=== PATIENT | female | born 1985 | race Caucasian/White ===

== ENCOUNTER → 2016-10-30 | Outpatient (CLI) | payer BC | LOC: RAD 16:35 | PROVIDERS: ATTEND Physician Assistant | DX: D17.79 Benign lipomatous neoplasm of other sites (principal) | CPT/HCPCS: 76881 ==

== ENCOUNTER → 2017-03-02 | Outpatient (CLI) | payer BC ==
--- NOTE | 2017-03-02 11:10 | RADIOLOGY REPORT (SQ) ---
EXAM DESCRIPTION: MRI LT LOWER JOINT WITHOUT COMPLETED DATE/TIME: 03/02/2017 9:27 am REASON FOR STUDY: LEFT KNEE PAIN (M25.562) M25.562 PAIN IN LEFT KNEE COMPARISON: None. TECHNIQUE: Leftknee images acquired and stored on PACS. Multiplanar images include fat sensitive se quences as T1, water sensitive sequences as FST2 or STIR, cartilage sensitive sequences as FSPD, and gradient echo sequences. LIMITATIONS: Motion artifact. FINDINGS: JOINT AND BURSAE: No effusion. BONE CORTEX AND MARROW: No alteration of signal to suggest marrow replacement. No worrisome bone lesi ons. No occult fracture. ACL: Intact. No degeneration or ganglion cyst. PCL: Intact. MCL: Intact. No periligamentous edema or fluid. LCL: Intact. No periligamentous edema or fluid. MEDIAL MENISCUS: No tears. No abnormal signal. LATERAL MENISCUS: No tears. No abnormal signal. MEDIAL COMPARTMENT: Cartilage preserved. No bone bruises or reactive marrow edema. No osteophytes. LATERAL COMPARTMENT: Cartilage preserved. No bone bruises or reactive marrow edema. No osteophytes. PATELLA: Mild subchondral signal alteration in the trochlea. Intact retinaculum. EXTENSOR MECHANISM: Intact. Quadriceps and patella tendons normal. SOFT TISSUES: Adjacent muscles and subcutaneous tissues normal. Normal flow void in popliteal artery and vein. OTHER: No other significant finding. IMPRESSION: Motion artifact. No evidence of meniscal or ligament tear. TECHNICAL DOCUMENTATION: JOB ID: [id number] [employer]- All Rights Reserved
== END ==
LOC: RAD 08:30
PROVIDERS: ATTEND Physician Assistant
DX: M25.562 Pain in left knee (principal)

== ENCOUNTER → 2017-03-12 | Outpatient (CLI) | payer BC ==
--- NOTE | 2017-03-12 10:44 | RADIOLOGY REPORT (SQ) ---
EXAM DESCRIPTION: MRI LT LOWER JOINT WITHOUT COMPLETED DATE/TIME: 03/12/2017 9:56 am REASON FOR STUDY: PAIN IN LEFT HIP M25.562 PAIN IN LEFT KNEE COMPARISON: None. TECHNIQUE: Lefthip images acquired and stored on PACS. Multiplanar images to include fat sensitive s equences as T1, fluid sensitive sequences as T2/STIR and gradient echo sequences. Large FOV fat and f luid sensitive sequences include pelvis and opposite hip. LIMITATIONS: None. FINDINGS: BONE CORTEX AND MARROW: No generalized marrow replacement. No occult fracture. No worriso me bone lesions. LEFT HIP: FEMORAL HEAD: No occult fracture. No osteophytes or subchondral cysts. Normal sphericity of femoral h ead/neck junction. No acetabular dysplasia. No evidence femoroacetabular impingement. No significant effusion. ACETABULUM: No acetabular dysplasia. No subchondral cysts. LABRUM: No loss of cartilage or delamination. Labrum is intact. No paralabral cysts. TROCHANTER: No trochanteric bursal effusion. No edema/fluid at the insertions of the gluteus medius and gluteus minimus. RIGHT HIP: Limited evaluation. No worrisome bone lesions. No significant effusion. PELVIS, LOWER LUMBAR SPINE, SACROILIAC JOINTS: PELVIS : No insufficiency/stress fractures. No significant degenerative changes. Sacroiliac joints demonstrate very mild edematous marrow change along the lower 3rd of the right and left SI joints, be st shown on coronal STIR images 15 through 18 L SPINE: Degenerative disc changes at L5-S1 MUSCLES AND SOFT TISSUES: Adductors and piriformis normal. Abductors and greater trochanteric bursa n ormal without edema or fluid. Iliopsoas bursa without fluid. Hamstring attachments without edema or t ear. PELVIC SOFT TISSUES: No masses or adenopathy. SCIATIC NERVE: Identified, without masses or abnormal signal. OTHER: No other significant finding. IMPRESSION: Very mild SI joint arthropathy. Otherwise unremarkable study. TECHNICAL DOCUMENTATION: JOB ID: [id number]- All Rights Reserved
== END ==
LOC: RAD 08:49
PROVIDERS: ATTEND Physician Assistant
DX: M25.562 Pain in left knee (principal)

== ENCOUNTER 2018-08-21 07:38 | Emergency (ER) | payer BC ==
--- NOTE | 2018-08-21 08:53 | ER Document Report ---
ED General - General Chief Complaint: Cold Symptoms Stated Complaint: SINUS PRESSURE Time Seen by Provider: 08/21/18 08:07 Mode of Arrival: Ambulatory Information source: Patient TRAVEL OUTSIDE OF THE [place] IN LAST 30 DAYS: No - HPI Patient complains to provider of: Sinus pressure Onset: Other - 33-year-old otherwise healthy female who presents for evaluation of sinus pressure cough and cold for the last 3 days. Has been taking [id number] medications without any improvement in her symptoms she said "I thought it would get better by now and I just cannot take this anymore". Has had multiple episodes like this in the past usually once a year around this time. He trauma, denies any chest pain, shortness of breath, abdominal pain diarrhea constipation dysuria does complain of a fullness in the face. - Related Data Allergies/Adverse Reactions: amoxicillin trihydrate [From Augmentin] Allergy (Verified 08/21/18 07:39) bacitracin [From Neosporin] Allergy (Verified 08/21/18 07:39) bacitracin zinc [From Neosporin] Allergy (Verified 08/21/18 07:39) benzocaine [From Dermagesic] Allergy (Verified 08/21/18 07:39) gramicidin D [From Neosporin] Allergy (Verified 08/21/18 07:39) neomycin sulfate [From Neosporin] Allergy (Verified 08/21/18 07:39) polymyxin B [From Neosporin] Allergy (Verified 08/21/18 07:39) polymyxin B sulfate [From Neosporin] Allergy (Verified 08/21/18 07:39) Potassium Clavulanate * [From Augmentin] Allergy (Verified 08/21/18 07:39) pyrilamine maleate [From Dermagesic] Allergy (Verified 08/21/18 07:39) zinc oxide [From Dermagesic] Allergy (Verified 08/21/18 07:39) Past Medical History - General Information source: Patient - Social History Smoking Status: Former Smoker Family History: Reviewed & Not Pertinent Patient has suicidal ideation: No Patient has homicidal ideation: No - Past Medical History Cardiac Medical History: Reports: Hx Hypertension Renal/ Medical History: Denies: Hx Peritoneal Dialysis Past Surgical History: Reports: Hx Orthopedic Surgery - Left wrist, left hip - Immunizations Hx Diphtheria, Pertussis, Tetanus Vaccination: Yes Review of Systems - Review of Systems -: Yes All other systems reviewed and negative Physical Exam - Vital signs Vitals: Temp Pulse Resp BP Pulse Ox 98 F 95 18 137/116 H 95 08/21/18 07:45 08/21/18 07:45 08/21/18 07:45 08/21/18 07:45 08/21/18 07:45 - General General appearance: Appears well, Alert - HEENT Head: Normocephalic Eyes: Normal Conjunctiva: Normal Sinus: Frontal, Maxillary Nasal: Purulent discharge - Respiratory Respiratory status: No respiratory distress Chest status: Nontender Breath sounds: Normal Chest palpation: Normal - Cardiovascular Rhythm: Regular Heart sounds: Normal auscultation Murmur: No - Abdominal Inspection: Normal Distension: No distension Bowel sounds: Normal Tenderness: Nontender Organomegaly: No organomegaly - Back Back: Normal, Nontender - Extremities General upper extremity: Normal inspection, Nontender, Normal color, Normal ROM, Normal temperature General lower extremity: Normal inspection, Nontender, Normal color, Normal ROM, Normal temperature, Normal weight bearing. No: Shantelle's sign - Neurological Neuro grossly intact: Yes Cognition: Normal Orientation: AAOx4 Perla Coma Scale Eye Opening: Spontaneous Perla Coma Scale Verbal: Oriented Perla Coma Scale Motor: Obeys Commands [place] Coma Scale Total: 15 Speech: Normal Motor strength normal: LUE, RUE, LLE, RLE Sensory: Normal - Psychological Associated symptoms: Normal affect, Normal mood Course - Re-evaluation Re-evalutation: 33-year-old female with sinus pressure does have a cough says that she has had some congestion which feels like this in the chest. We will obtain a chest x-ray. Chest x-ray is negative flu test negative. Believe that this patient likely has an upper respiratory tract infection though she is complaining about sinus pressure and sinus congestion, because she is complaining about her sinuses we will plan for this patient to be given an antibiotic prescription to be filled only if she has persistent symptoms despite conservative management. I instructed her specifically that she should not fill this prescription unless she has had symptoms for greater than 12 days per the recommendation of the [facility]. Patient was discharged with return precautions and expectant management. - Vital Signs Vital signs: Temp Pulse Resp BP Pulse Ox 98.3 F 85 16 118/69 99 08/21/18 09:50 08/21/18 09:50 08/21/18 09:50 08/21/18 09:50 08/21/18 09:50 Discharge - Discharge Clinical Impression: Sinus pressure, Cough, Congestion of respiratory tract Condition: Good Disposition: HOME, SELF-CARE Instructions: Sinusitis ([facility]), Upper Respiratory Illness ([facility]) Additional Instructions: You were seen in the emergency department for your sinus pressure. You had evaluation including a physical exam, a chest x-ray. Your chest x-ray does not show pneumonia, you likely have a viral sinusitis. You should use decongestants. Return to the emergency department in case you have fevers chills inability to breathe or other worsening symptoms otherwise use the medications prescribed you as directed. Do not fill the antibiotic prescribed to you unless you have symptoms greater than 12 days. Prescriptions: Benzonatate [Tessalon Perles 100 mg Capsule] 100 mg PO Q8HP PRN #40 capsule PRN Reason: Amoxicillin Trihydrate [Amoxil 500 mg Capsule] 500 mg PO TID #30 cap Cephalexin Monohydrate [Keflex 500 mg Capsule] 500 mg PO QID #20 capsule Oxymetazoline HCl [Afrin 0.05% Nasal Green 15 ml Bottle] 30 spray NAREB BID PRN #1 bottle PRN Reason: Referrals: BESSIE HUMPHREY PA-C [PHYSICIAN RUBBER COVERING MACHINE OPERATOR] - Follow up as needed
--- NOTE | 2018-08-21 09:20 | RADIOLOGY REPORT (SQ) ---
EXAM DESCRIPTION: CHEST 2 VIEWS COMPLETED DATE/TIME: 08/21/2018 9:10 am REASON FOR STUDY: cough COMPARISON: None. EXAM PARAMETERS: NUMBER OF VIEWS: two views TECHNIQUE: Digital Frontal and Lateral radiographic views of the chest acquired. RADIATION DOSE: NA LIMITATIONS: none FINDINGS: LUNGS AND PLEURA: No opacities, masses or pneumothorax. No pleural effusion. MEDIASTINUM AND HILAR STRUCTURES: No masses or contour abnormalities. HEART AND VASCULAR STRUCTURES: Heart normal size. No evidence for failure. BONES: No acute findings. HARDWARE: None in the chest. OTHER: No other significant finding. IMPRESSION: NO ACUTE RADIOGRAPHIC FINDING IN THE CHEST. TECHNICAL DOCUMENTATION: JOB ID: [id number] [employer]- All Rights Reserved Reading location - IP/workstation name: [email or web address]
[2018-08-21 09:58] VITALS: BP 118/69
== END 2018-08-21 09:50 | disposition home or self-care (01) ==
LOC: ER 07:38
DX: R09.81 Nasal congestion (principal); J34.89 Other specified disorders of nose and nasal sinuses; R09.89 Other specified symptoms and signs involving the circulatory and respiratory systems; R05 Cough; I10 Essential (primary) hypertension; Z88.1 Allergy status to other antibiotic agents; Z88.3 Allergy status to other anti-infective agents; Z88.4 Allergy status to anesthetic agent; Z88.0 Allergy status to penicillin; Z87.891 Personal history of nicotine dependence
CPT/HCPCS: 71046; 99283

== ENCOUNTER 2020-06-22 21:32 | Emergency (ER) | payer OTHER, BC ==
--- NOTE | 2020-06-22 22:46 | ER Document Report ---
Entered by NERI GEORGE SCRIBE 06/22/202200 Acting as scribe for:FABIÁN CASTELLANO DO ED General - General Stated Complaint: ALLERGIC REACTION Time Seen by Provider: 06/22/20 21:45 Primary Care Provider: LALO PETIT MD [ACTIVE STAFF] - Follow up as needed Information source: Patient Notes: This 35 year old female patient with history of HTN and anxiety, presents to the emergency department today with a possible allergic reaction. Patient states she went for a run 45 min travel pta to the ED and began to feel itchy everywhere. Patient states she felt like she could not breath and took Benadryl at home with relief. Patient arrived by EMS and states she was given Benadryl and steroids en route. Patient states she vomited before her run tonight and denies recent illness. 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 TRAVEL OUTSIDE OF THE [place] IN LAST 30 DAYS: No - Related Data Allergies/Adverse Reactions: amoxicillin trihydrate [From Augmentin] Allergy (Verified 08/21/18 07:39) bacitracin [From Neosporin] Allergy (Verified 08/21/18 07:39) bacitracin zinc [From Neosporin] Allergy (Verified 08/21/18 07:39) benzocaine [From Dermagesic] Allergy (Verified 08/21/18 07:39) gramicidin D [From Neosporin] Allergy (Verified 08/21/18 07:39) neomycin sulfate [From Neosporin] Allergy (Verified 08/21/18 07:39) polymyxin B [From Neosporin] Allergy (Verified 08/21/18 07:39) polymyxin B sulfate [From Neosporin] Allergy (Verified 08/21/18 07:39) Potassium Clavulanate * [From Augmentin] Allergy (Verified 08/21/18 07:39) pyrilamine maleate [From Dermagesic] Allergy (Verified 08/21/18 07:39) zinc oxide [From Dermagesic] Allergy (Verified 08/21/18 07:39) Past Medical History - General Information source: Patient - Social History Smoking Status: Never Smoker Cigarette use (# per day): No Family History: Reviewed & Not Pertinent - Past Medical History Cardiac Medical History: Reports: Hx Hypertension Renal/ Medical History: Denies: Hx Peritoneal Dialysis Psychiatric Medical History: Reports: Hx Anxiety Past Surgical History: Reports: Hx Orthopedic Surgery - Left wrist, left hip - Immunizations Hx Diphtheria, Pertussis, Tetanus Vaccination: Yes Review of Systems - Review of Systems Constitutional: See HPI. denies: Recent illness EENT: No symptoms reported Cardiovascular: No symptoms reported Respiratory: See HPI, Short of breath Gastrointestinal: See HPI, Vomiting Genitourinary: No symptoms reported Female Genitourinary: No symptoms reported Musculoskeletal: No symptoms reported Skin: See HPI - possible allergic reaction Hematologic/Lymphatic: No symptoms reported Neurological/Psychological: No symptoms reported -: Yes All other systems reviewed and negative Physical Exam - Vital signs Vitals: Resp Pulse Ox 17 96 06/22/20 21:39 06/22/20 21:39 - General General appearance: Appears well, Alert - HEENT Head: Normocephalic, Atraumatic Eyes: Normal Pupils: PERRL Mouth/Lips: Normal Pharynx: Normal - Respiratory Respiratory status: No respiratory distress Chest status: Nontender Breath sounds: Normal Chest palpation: Normal - Cardiovascular Rhythm: Regular Heart sounds: Normal auscultation Murmur: No - Abdominal Inspection: Obese Distension: No distension Bowel sounds: Normal Tenderness: Nontender - Back Back: Normal, Nontender - Extremities General upper extremity: Normal inspection, Normal ROM General lower extremity: Normal inspection, Normal ROM. 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 She is monitored for a period of time here, has no recurrence of anaphalaxis and had 150 of benadryl and 125 mg solu- medrol and 20 mg pepcid en route to the ED. She feels better here now. - Vital Signs Vital signs: Temp Pulse Resp BP Pulse Ox 21 H 114/70 97 06/22/20 23:01 06/22/20 23:01 06/22/20 23:01 Discharge - Discharge Clinical Impression: Allergic reaction Qualifiers: Encounter type: initial encounter Qualified Code(s): T78.40XA - Allergy, unspecified, initial encounter Condition: Stable Disposition: HOME, SELF-CARE Instructions: Acute Allergic Reaction ([facility]) Additional Instructions: Wash your clothes in a detergent that you have previously used without difficulty. Rest, Fluids, please return here for chest pain, shortness of breath or any other problems or concerns. Referrals: LALO PETIT MD [ACTIVE STAFF] - Follow up as needed I personally performed the services described in the documentation, reviewed and edited the documentation which was dictated to the scribe in my presence, and it accurately records my words and actions.
[2020-06-23 00:38] VITALS: BP 134/76
--- NOTE | 2020-06-23 06:59 | EKG REPORT ---
SEVERITY:- ABNORMAL ECG - SINUS TACHYCARDIA LEFT ATRIAL ABNORMALITY BORDERLINE T WAVE ABNORMALITIES : Confirmed by: Sandro Harris MD 23-Jun-2020 06:59:18
== END 2020-06-23 00:38 | disposition home or self-care (01) ==
LOC: ER 21:32
DX: T78.40XA Allergy, unspecified, initial encounter (principal); R11.10 Vomiting, unspecified; R06.02 Shortness of breath; L29.9 Pruritus, unspecified; X58.XXXA Exposure to other specified factors, initial encounter; I10 Essential (primary) hypertension
CPT/HCPCS: 93005; 93010; 99283

== ENCOUNTER 2020-07-25 09:56 | Emergency (ER) | payer BC, OTHER ==
--- NOTE | 2020-07-25 11:03 | ER Document Report ---
ED General - General Chief Complaint: Shortness Of Breath Stated Complaint: SHORTNESS OF BREATH, BODY ACHE, COUGH Time Seen by Provider: 07/25/20 11:03 Primary Care Provider: MILLIE HOLLINGSWORTH [Primary Care Provider] - Follow up in 1 week TRAVEL OUTSIDE OF THE [place] IN LAST 30 DAYS: No - HPI Notes: 35-year-old female with past medical history for hypertension and tachycardia as well as obesity to the emergency room with complaints of cough, shortness of breath, chest pain, body aches, headache, sore throat, mild decrease in smell and taste for the past 2 to 3 days. 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 She states that she has not had any patients who have been positive with COVID-19 but she did have a colleague who called out sick today for similar symptoms. She denies any temperatures above 100.4 but states that she has felt febrile. Admits to chills. She has been taking Tylenol Motrin without any benefit. The patient was evaluated during the global COVID 19 pandemic, and that diagnosis was suspected/considered upon their initial presentation. Their evaluation, treatment, and testing was consistent with current guidelines for patients who present with complaints or symptoms that may be related to COVID-19. - Related Data Allergies/Adverse Reactions: amoxicillin trihydrate [From Augmentin] Allergy (Verified 08/21/18 07:39) bacitracin [From Neosporin] Allergy (Verified 08/21/18 07:39) bacitracin zinc [From Neosporin] Allergy (Verified 08/21/18 07:39) benzocaine [From Dermagesic] Allergy (Verified 08/21/18 07:39) gramicidin D [From Neosporin] Allergy (Verified 08/21/18 07:39) neomycin sulfate [From Neosporin] Allergy (Verified 08/21/18 07:39) polymyxin B [From Neosporin] Allergy (Verified 08/21/18 07:39) polymyxin B sulfate [From Neosporin] Allergy (Verified 08/21/18 07:39) Potassium Clavulanate * [From Augmentin] Allergy (Verified 08/21/18 07:39) pyrilamine maleate [From Dermagesic] Allergy (Verified 08/21/18 07:39) zinc oxide [From Dermagesic] Allergy (Verified 08/21/18 07:39) Past Medical History - General Information source: Patient - Social History Smoking Status: Never Smoker Frequency of alcohol use: None Drug Abuse: None Family History: Reviewed & Not Pertinent - Past Medical History Cardiac Medical History: Reports: Hx Hypertension Renal/ Medical History: Denies: Hx Peritoneal Dialysis Psychiatric Medical History: Reports: Hx Anxiety Past Surgical History: Reports: Hx Orthopedic Surgery - Left wrist, left hip - Immunizations Hx Diphtheria, Pertussis, Tetanus Vaccination: Yes Review of Systems - Review of Systems Constitutional: Chills, Fever EENT: Throat pain Cardiovascular: Chest pain, Heart racing. denies: Palpitations, Orthopnea, Dyspnea, Syncope, Dizziness, Lightheaded Respiratory: Cough, Short of breath Gastrointestinal: denies: Abdominal pain, Nausea, Vomiting Female Genitourinary: No symptoms reported Musculoskeletal: Muscle pain - Body aches Skin: No symptoms reported Hematologic/Lymphatic: No symptoms reported Neurological/Psychological: No symptoms reported -: Yes All other systems reviewed and negative Physical Exam - Vital signs Vitals: Temp Pulse Resp BP Pulse Ox 98.2 F 105 H 20 142/70 H 97 07/25/20 10:01 07/25/20 10:01 07/25/20 10:01 07/25/20 10:01 07/25/20 10:01 Notes: PHYSICAL EXAMINATION: GENERAL: Well-appearing, well-nourished and in no acute distress. HEAD: Atraumatic, normocephalic. EYES: Pupils equal round and reactive to light, extraocular movements intact, sclera anicteric, conjunctiva are normal. ENT: nares patent, oropharynx clear without exudates. Moist mucous membranes. TMs clear bilaterally. Airway is grossly patent. No Praneeth's angina NECK: Normal range of motion, supple without lymphadenopathy, no meningeal signs LUNGS: Breath sounds clear to auscultation bilaterally and equal. No wheezes rales or rhonchi. HEART: Regular rate and rhythm without murmurs ABDOMEN: Soft, nontender, normoactive bowel sounds. No guarding, no rebound. No masses appreciated. Obese EXTREMITIES: Normal range of motion, no pitting or edema. No cyanosis. NEUROLOGICAL: No focal neurological deficits. Moves all extremities spontaneously and on command. PSYCH: Normal mood, normal affect. SKIN: Warm, Dry, normal turgor, no rashes or lesions noted. Course - Re-evaluation Re-evalutation: 07/25/20 Patient is feeling better after Toradol. Labs are reassuring as well as chest x-ray which is clear. To have a suspicion for possible coronavirus. Given her dose of Decadron here and will send home with cough medicine as well as albuterol inhaler. Encouraged her to follow-up outpatient with her primary care at the [place]. She agrees with the plan and I have encouraged her to return if she has worsening shortness of breath or chest pain. Patient was provided with discharge information including: As a person under investigation for COVID-19, [facility], division of public health advises you to adhere to the following guidance until your test results are reported to you. If your test result is positive, you will receive additional information from your provider and your local health department at that time. Remain at home until you are cleared by the healthcare provider public health authorities. Keep a log of visitors to your home and notify any visitors to your home of your isolation status. If you plan to move to a new address or leave the country, notify the local health department and your County. Call your doctor or seek care if you have an urgent medical need. Before seeking medical care, call ahead to get instructions from the provider before arriving at the medical office, clinic, or hospital. Notify them that you are being tested for the virus that causes COVID-19 so that arrangements can be made, as necessary, to prevent transmission to others in the healthcare setting. Next, notify the local health department and your County. If a medical emergency arises and you need to call 911, informed the first responders that you are being tested for the virus that causes COVID-19. Next, notified the local health department and your County. - Vital Signs Vital signs: Temp Pulse Resp BP Pulse Ox 98.0 F 89 18 132/68 H 99 07/25/20 13:56 07/25/20 13:56 07/25/20 13:56 07/25/20 13:56 07/25/20 13:56 - Laboratory Result Diagrams: 07/25/20 11:31 07/25/20 11:31 Laboratory results interpreted by me: 07/25/20 07/25/20 11:31 11:31 Hct 35.7 L [place] % (Auto) 13.2 H Glucose 113 H - Diagnostic Test Radiology reviewed: Image reviewed, Reports reviewed - EKG Interpretation by Me Additional EKG results interpreted by me: 07/25/20 Rate 87 Rhythm: sinus Interpretation: No STEMI, no ST changes, normal axis, no LVH, there is no significant change from prior on June 22, 2020 Discharge - Discharge Clinical Impression: Viral upper respiratory illness, Generalized body aches, Cough, Shortness of breath Condition: Stable Disposition: HOME, SELF-CARE Instructions: COVID-19 Guidance for Persons Under Investigation, Upper Respiratory Illness ([facility]) Additional Instructions: Please quarantine at home until you find out the results of your coronavirus test. Rest at home take medicines as prescribed. Use albuterol inhaler and cough medicine. Alternate between Tylenol and Motrin for fever reduction. Return if worsening symptoms. Follow-up with primary care. As a person under investigation for COVID-19, [facility], division of public health advises you to adhere to the following guidance until your test results are reported to you. If your test result is positive, you will receive additional information from your provider and your local health department at that time. Remain at home until you are cleared by the healthcare provider public health authorities. Keep a log of visitors to your home and notify any visitors to your home of your isolation status. If you plan to move to a new address or leave the country, notify the [facility] health department and your County. Call your doctor or seek care if you have an urgent medical need. Before seeking medical care, call ahead to get instructions from the provider before arriving at the medical office, clinic, or hospital. Notify them that you are being tested for the virus that causes COVID-19 so that arrangements can be made, as necessary, to prevent transmission to others in the healthcare setting. Next, notify the local health department and your County. If a medical emergency arises and you need to call 911, informed the first responders that you are being tested for the virus that causes COVID-19. Next, notified the [facility] health department and your County. Prescriptions: Benzonatate [Tessalon Perles 100 mg Capsule] 100 mg PO Q8HP PRN #40 capsule PRN Reason: Albuterol Sulfate [Albuterol Sulfate Hfa] 2 puff IH Q4H #1 hfa.aer.ad Acetaminophen [Tylenol] 975 mg PO Q6H #30 capsule Forms: Return to Work Referrals: [facility] [Primary Care Provider] - Follow up in 1 week
[2020-07-25] MEDS ORDERED: KETOROLAC TROMETHAMINE INJ/PF 30 MG/1 ML SDV IV ONE (11:40)
[2020-07-25 11:50] LABS: ABSOLUTE EOSINOPHILS # (AUTO) 0.1 10^3/uL (0.0-0.6); ABSOLUTE LYMPHOCYTES (AUTO) 1.4 10^3/uL (0.5-4.7); ABSOLUTE MONOCYTES (AUTO) 0.7 10^3/uL (0.1-1.4); ABSOLUTE NEUT (AUTO) 2.9 10^3/uL (1.7-8.2); BASOPHILS % (AUTO) 0.4 % (0-2); HEMATOCRIT 35.7 % (36.0-47.0); HEMOGLOBIN 12.3 g/dL (12.0-15.5); LYMPHOCYTES % (AUTO) 28.2 % (13-45); MEAN CORPUSCULAR HEMOGLOBIN 28.5 pg (27.0-33.4); MEAN CORPUSCULAR HGB CONC 34.5 g/dL (32.0-36.0); MEAN CORPUSCULAR VOLUME 83 fl (80-97); MONOCYTES % (AUTO) 13.2 % (3-13); PLATELET COUNT 293 10^3/uL (150-450); RED BLOOD COUNT 4.32 10^6/uL (3.72-5.28); RED CELL DISTRIBUTION WIDTH 13.7 % (11.5-14.0); SEGMENTED NEUTROPHILS % (AUTO) 57.2 % (42-78); TOTAL CELLS COUNTED % (AUTO) 100 %; WHITE BLOOD COUNT 5.1 10^3/uL (4.0-10.5)
--- NOTE | 2020-07-25 11:55 | RADIOLOGY REPORT (SQ) ---
EXAM DESCRIPTION: CHEST SINGLE VIEW IMAGES COMPLETED DATE/TIME: 07/25/2020 11:37 am REASON FOR STUDY: SOB COMPARISON: 08/21/2018 EXAM PARAMETERS: NUMBER OF VIEWS: One view. TECHNIQUE: Single frontal radiographic view of the chest acquired. RADIATION DOSE: NA LIMITATIONS: None. FINDINGS: LUNGS AND PLEURA: No opacities, masses or pneumothorax. No pleural effusion. MEDIASTINUM AND HILAR STRUCTURES: No masses. Contour normal. HEART AND VASCULAR STRUCTURES: Heart normal in size. Normal vasculature. BONES: No acute findings. HARDWARE: None in the chest. OTHER: No other significant finding. IMPRESSION: NO ACUTE RADIOGRAPHIC FINDING IN THE CHEST. TECHNICAL DOCUMENTATION: JOB ID: [id number] 2010 [employer] All Rights Reserved Reading location - IP/workstation name: [email or web address]
[2020-07-25 12:08] LABS: ALBUMIN 3.9 g/dL (3.5-5.0); ALKALINE PHOSPHATASE 65 U/L (38-126); ANION GAP 10 (5-19); ASPARTATE AMINO TRANSFERASE 30 U/L (14-36); BILIRUBIN,DIRECT 0.1 mg/dL (0.0-0.4); BILIRUBIN,TOTAL 0.3 mg/dL (0.2-1.3); BLOOD UREA NITROGEN 8 mg/dL (7-20); CALCIUM 9.1 mg/dL (8.4-10.2); CARBON DIOXIDE 23 mmol/L (22-30); CHLORIDE 107 mmol/L (98-107); GLUCOSE 113 mg/dL (75-110); POTASSIUM 3.9 mmol/L (3.6-5.0); TOTAL PROTEIN 6.8 g/dL (6.3-8.2)
--- NOTE | 2020-07-25 12:33 | EKG REPORT ---
SEVERITY:- NORMAL ECG - SINUS RHYTHM : Confirmed by: Jona Linda MD 25-Jul-2020 12:32:44
[2020-07-25] MEDS ORDERED: DEXAMETHASONE SOD PHOS INJ 10 MG/1 ML VIAL IV ONE (13:36)
[2020-07-25 13:56] VITALS: BP 132/68
== END 2020-07-25 13:56 | disposition home or self-care (01) ==
LOC: ER 09:56
DX: U07.1 COVID-19 (principal); J98.8 Other specified respiratory disorders; I10 Essential (primary) hypertension; R05 Cough; R06.02 Shortness of breath; R07.9 Chest pain, unspecified; R51.9 Headache, unspecified; J02.9 Acute pharyngitis, unspecified; R50.9 Fever, unspecified; M79.10 Myalgia, unspecified site; R43.8 Other disturbances of smell and taste; Z88.0 Allergy status to penicillin; Z88.1 Allergy status to other antibiotic agents; Z88.8 Allergy status to other drugs, medicaments and biological substances
CPT/HCPCS: 93005; 99285; 96375; 96365; 36415; 83735; 84443; 85025; 87635; 80053; 84484; 71045; 93010; J1885; J1100; C9803